=== PATIENT | female | born 2000 | race Caucasian/White ===

== ENCOUNTER 2023-05-30 00:30 | Emergency (ER) | payer OTHER ==
[~2023-05-30] VITALS: Ht 154.9 cm; Wt 73.7 kg
[2023-05-30 01:07] VITALS: BP 96/70; PULSE 90; RESP 17; TEMP 97.9; O2SAT 100
[2023-05-30 01:33] LABS: APPEARANCE,URINE CLEAR (CLEAR); BILIRUBIN,URINE NEGATIVE (NEGATIVE); BLOOD, URINE NEGATIVE (NEGATIVE); COLOR,URINE YELLOW (YELLOW); LEUKOCYTE ESTERASE ,URINE NEGATIVE (NEGATIVE); NITRITE, URINE NEGATIVE (NEGATIVE); PROTEIN,URINE NEGATIVE (NEGATIVE); UGLUCOSE NEGATIVE (NEGATIVE); UROBILINOGEN,URINE 0.2 EU/dL (0.2 - 1)
== END 2023-05-30 03:12 | disposition left against medical advice (07) ==
LOC: MED 00:30
DX: O26.891 Other specified pregnancy related conditions, first trimester (principal); N89.8 Other specified noninflammatory disorders of vagina; R10.9 Unspecified abdominal pain; Z53.21 Procedure and treatment not carried out due to patient leaving prior to being seen by health care provider; Z3A.11 11 weeks gestation of pregnancy
CPT/HCPCS: 81003; 81025; 99281